=== PATIENT | male | born 1945 | race Caucasian/White ===

== ENCOUNTER 2018-01-11 08:02 | Day surgery (SDC) | payer OTHER ==
[2018-01-11] MEDS ORDERED: NS 1,000 ML IV ONE (08:03)
[2018-01-11] MEDS ORDERED: DIAZEPAM 5 MG TAB PO ONE (08:03)
[2018-01-11] MEDS ORDERED: ASPIRIN EC 325 MG TAB PO ONE (08:03)
[2018-01-11] MEDS ORDERED: diphenhydrAMINE 25 MG CAP PO ONE (08:03)
[2018-01-11] MEDS ORDERED: FAMOTIDINE 20 MG TAB PO ONE (08:03)
--- NOTE | 2018-01-11 08:22 | CPEKG ---
Heart Rate: 51 RR Interval: 1176 P-R Interval: 192 QRSD Interval: 154 QT Interval: 492 QTC Interval: 454 P Dickens: 51 QRS Dickens: -41 T Wave Dickens: 36 EKG Severity - ABNORMAL ECG - EKG Impression: SINUS RHYTHM EKG Impression: RBBB AND LAFB Electronically Signed By: Jozef Pandey 15-Jan-2018 16:11:51
[2018-01-11 08:41] LABS: PLATELET COUNT 197 10^3/uL (150-400)
[2018-01-11 08:50] LABS: PROTIME(PATIENT) 13.4 SEC (12.0-15.0)
[2018-01-11] MEDS ORDERED: fentaNYL 100 MCG/2 ML INJ ONE (09:21)
[2018-01-11] MEDS ORDERED: LIDOCAINE 1% 300 MG/30 ML SDV ONE (09:21)
[2018-01-11] MEDS ORDERED: MIDAZOLAM 2 MG/2 ML VIAL ONE (09:22)
[2018-01-11] MEDS ORDERED: IOPAMIDOL (ISOVUE-370) 150 ML BTL IV ONE (09:22)
--- NOTE | 2018-01-11 09:23 | PDPROPOC ---
Sedation Plan of Care Sedation Plan of Care: vital signs stable, mental status noted, patient educated of risks, benefits, alternatives, patient can tolerate sedation ASA Classification: ASA 2 Planned drugs: fentanyl, midazolam Mallampati Score: Class 1 Mallampati Reference Image: Patient passed 3-3-2 rule?: Yes
--- NOTE | 2018-01-11 09:23 | PDHPUP ---
History & Physical Update H&P update statement: This history and physical update is based on an assessment of the patient which was completed after admission or registration (within 24 hours), but prior to the surgery/procedure. H&P update: H&P reviewed & patient examined, no change in patient's condition since H&P completed
[2018-01-11] MEDS ORDERED: ATROPINE SULFATE 1 MG/10 ML SYR ONE (09:59)
[2018-01-11] MEDS ORDERED: ATROPINE SULFATE 1 MG/10 ML SYR IVP PRN (10:19)
[2018-01-11] MEDS ORDERED: NITROGLYCERIN 0.4 MG BTL SL PRN (10:19)
[2018-01-11] MEDS ORDERED: ONDANSETRON 4 MG/2 ML VIAL IVP PRN (10:19)
--- NOTE | 2018-01-11 10:23 | PDDXCAT ---
Diagnostic Cath Note - . Date: 01/11/18 Environmental Health Aide: Judah Indication: Class I/II angina, intolerance to med therapy or failure to respond High-risk criteria on non-invasive testing: stress-induced moderate-size multiple perfusion defects - Procedure Access: right groin Procedure: left heart catheterization, coronary angiography, left ventriculogram , ERICKSON injection - Materials Left Heart Cath size: 6F Left Heart Cath materials: standard multipack (JL4, JR4, pigtail) - Findings-Left Heart Catheterization LM: Unobstructed LAD: Occluded after principal diagonal LCX: Luminal irregularities of up to 30% in the body of the circumflex. Obtuse marginal branch is occluded felt by collaterals. [id number] filling of the distal RCA and apex of the heart RCA: Anterior takeoff: 100% occluded bridging collaterals. ERICKSON: Patent to the LAD with retrograde filling of the obtuse marginal branch and distal RCA EDP: 18 mm of mercury LVEF: 60% Wall motion: Small area of inferior hypokinesis Complications: None Estimated blood loss: <50ml Closure method: manual pressure Assessment: Severe multivessel coronary disease with patent mammary artery to the LAD. Circumflex artery remains patent with excellent collaterals. Preserved LV systolic function with normal filling pressures. Plan: Medical therapy. No indications for redo bypass grafting at this point without significant distal targets. 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
== END 2018-01-11 14:00 | disposition home or self-care (01) ==
LOC: FCATH 08:02
PROVIDERS: ATTEND Internal Medicine Interventional Cardiology
PROC: B213YZZ Fluoroscopy of Multiple Coronary Artery Bypass Grafts using Other Contrast (ICD-10-PCS; principal; 2018-01-11)
PROC: 4A023N7 Measurement of Cardiac Sampling and Pressure, Left Heart, Percutaneous Approach (ICD-10-PCS; principal; 2018-01-11)
PROC: B2151ZZ Fluoroscopy of Left Heart using Low Osmolar Contrast (ICD-10-PCS; principal; 2018-01-11)
DX: I25.119 Atherosclerotic heart disease of native coronary artery with unspecified angina pectoris (principal); R94.39 Abnormal result of other cardiovascular function study; N40.0 Benign prostatic hyperplasia without lower urinary tract symptoms; E78.5 Hyperlipidemia, unspecified; I10 Essential (primary) hypertension; Z79.82 Long term (current) use of aspirin; Z95.1 Presence of aortocoronary bypass graft
CPT/HCPCS: C1769; J0461; J1644; J2250; J3010; Q9967